=== PATIENT | male | born 1990 | race Caucasian/White ===

== ENCOUNTER 2021-01-23 17:24 | Emergency (ER) | payer OTHER ==
--- NOTE | 2021-01-23 18:05 | ED ---
General Adult HPI - General Stated complaint: Covid Exposure,Wants covid test Time Seen by Provider: 01/23/21 18:03 - History of Present Illness Initial comments: Brent is a previously healthy 31M who presents to the ER requesting a COVID test. Patient's mother yesterday of COVID, she had tested positive for COVID on 01/19. Patient denies symptoms. Patient is not vaccinated. - Related Data Previous Rx's Medication Instructions Recorded Acetaminophen-Codeine 300-30mg 1 tab PO Q4H PRN #20 tablet 02/01/15 [Tylenol w/codeine #3] Cephalexin [Keflex] 500 mg PO Q6HR #40 cap 02/01/15 Allergies Allergy/AdvReac Type Severity Reaction Status Date / Time No Known Allergies Allergy Verified 02/01/15 17:45 Review of Systems ROS Statement: Those systems with pertinent positive or pertinent negative responses have been documented in the HPI. ROS Other: All systems not noted in ROS Statement are negative. Past Medical History Past Medical History: No Reported History History of Any Multi-Drug Resistant Organisms: None Reported Past Surgical History: No Surgical Hx Reported Past Psychological History: No Psychological Hx Reported Past Alcohol Use History: Occasional Past Drug Use History: None Reported General Exam - General Exam Comments Initial Comments: Physical Exam GENERAL: Patient is well-developed and well-nourished. Patient is nontoxic and well-hydrated and is in no distress. HENT: Normocephalic, Atraumatic. EYES: PERRL, EOMI PULMONARY: Unlabored respirations. CARDIOVASCULAR: RRR Warm and well perfused extremities ABDOMEN: Non-distended SKIN: No rashes or bruising : Deferred NEUROLOGIC: Alert and oriented Normal speech Normal gait MUSCULOSKELETAL: Moving all extremities with no apparent injury PSYCHIATRIC: No SI/HI Medical Decision Making - Medical Decision Making The patient was seen and evaluated, history is obtained from the patient, patient with known exposure to COVID-19 patient's requesting a test today. Patient currently is symptomatic. Disposition Clinical Impression: Exposure to COVID-19 virus Disposition: HOME SELF-CARE Condition: Stable Additional Instructions: Sorry about your loss. We will notify you of your results. Is patient prescribed a controlled substance at d/c from ED?: No Referrals: None,Stated [Primary Care Provider] - 1-2 days
[2021-01-23 19:30] VITALS: BP 117/75; PULSE 73; RESP 20; TEMP 98.5
== END 2021-01-23 18:30 | disposition home or self-care (01) ==
LOC: EC 17:24
DX: Z11.52 Encounter for screening for COVID-19 (principal); Z20.822 Contact with and (suspected) exposure to COVID-19
CPT/HCPCS: 87635; 99282

== ENCOUNTER 2021-03-05 10:52 | Emergency (ER) | payer OTHER ==
[2021-03-05 11:04] VITALS: BP 133/70; PULSE 93; RESP 18; TEMP 98.8
--- NOTE | 2021-03-05 11:52 | ED ---
URI HPI - General Chief Complaint: Upper Respiratory Infection Stated Complaint: covid test Time Seen by Provider: 03/05/21 10:59 Source: patient, RN notes reviewed Mode of arrival: ambulatory Limitations: no limitations - History of Present Illness Initial Comments: 31-year-old male presents emergency department for covid 19 exposure. He states he is asymptomatic but states he needs to be tested to go back to work. Patient offers no associated complaints. - Related Data Home Medications Medication Instructions Recorded Confirmed No Known Home Medications 01/23/21 01/23/21 Allergies Allergy/AdvReac Type Severity Reaction Status Date / Time No Known Allergies Allergy Verified 03/05/21 11:04 Review of Systems ROS Statement: Those systems with pertinent positive or pertinent negative responses have been documented in the HPI. ROS Other: All systems not noted in ROS Statement are negative. Past Medical History Past Medical History: No Reported History History of Any Multi-Drug Resistant Organisms: None Reported Past Surgical History: No Surgical Hx Reported Past Psychological History: No Psychological Hx Reported Smoking Status: Never smoker Past Alcohol Use History: Occasional Past Drug Use History: Marijuana General Exam Limitations: no limitations General appearance: alert, in no apparent distress Head exam: Present: atraumatic, normocephalic, normal inspection Eye exam: Present: normal appearance, PERRL, EOMI. Absent: scleral icterus, conjunctival injection, periorbital swelling ENT exam: Present: normal exam, mucous membranes moist Neck exam: Present: normal inspection. Absent: tenderness, meningismus, lymphadenopathy Respiratory exam: Present: normal lung sounds bilaterally. Absent: respiratory distress, wheezes, rales, rhonchi, stridor Cardiovascular Exam: Present: regular rate, normal rhythm, normal heart sounds. Absent: systolic murmur, diastolic murmur, rubs, gallop, clicks Course Vital Signs 03/05/21 11:01 Temperature 98.8 F Pulse Rate 93 Respiratory 18 Rate Blood Pressure 133/70 O2 Sat by Pulse 100 Oximetry Medical Decision Making - Lab Data Lab Results 03/05/21 Range/Units 11:06 Coronavirus (PCR) Not Detected (Not Detectd) Disposition Clinical Impression: Encounter for laboratory testing for COVID-19 virus Disposition: HOME SELF-CARE Condition: Stable Additional Instructions: Please return to the Emergency Department if symptoms worsen or any other concerns. Is patient prescribed a controlled substance at d/c from ED?: No Referrals: None,Stated [Primary Care Provider] - 1-2 days Time of Disposition: 11:51
== END 2021-03-05 12:06 | disposition home or self-care (01) ==
LOC: EC 10:52
DX: Z20.822 Contact with and (suspected) exposure to COVID-19 (principal); F12.90 Cannabis use, unspecified, uncomplicated
CPT/HCPCS: 87635; 99282